=== PATIENT | female | born 1985 ===

== ENCOUNTER 2017-02-01 16:19 | Emergency (ER) | payer SELFPAY ==
[~2017-02-01] VITALS: Ht 162.6 cm; Wt 52.5 kg
[2017-02-01 16:27] VITALS: Ht 162.6 cm; Wt 52.5 kg
== END 2017-02-01 22:19 | disposition left against medical advice (07) ==
LOC: FTE 16:19
DX: Z53.21 Procedure and treatment not carried out due to patient leaving prior to being seen by health care provider (principal)